=== PATIENT | male | born 1955 | race African-American/Black ===

== ENCOUNTER 2018-05-04 12:40 | Emergency (ER) | payer MEDICARE, MEDICAID ==
--- NOTE | 2018-05-04 14:16 | ED ---
Abdominal Pain/Male - HPI Summary HPI Summary: Pt is a 62 y/o male who presents to the ED c/o lower abdominal pain. He states hes had the pain for 6 days, and describes it as worsening at 6/10 in severity. Eating makes the pain worse. Pt denies any N/V/D, CP, SOB, or fever. He notes hes been having more BM over the past few days. Today he became dizzy which prompted him to come to the ED. PMHx DM and HTN. PSHx umbilical hernia repair. - History of Current Complaint Chief Complaint: EDAbdPain Stated Complaint: DIZZINESS/BP SAYS LOW/ABD PAIN Time Seen by Provider: 05/04/18 14:01 Hx Obtained From: Patient Onset/Duration: Gradual Onset, Lasting Days - 6, Worse Since Timing: Constant Severity Currently: Moderate Pain Intensity: 6 Pain Scale Used: 0-10 Numeric Location: Discrete At: RLQ, Discrete At: LLQ Radiates: No Aggravating Factor(s): Food Alleviating Factor(s): Nothing Associated Signs And Symptoms: Positive: Dizzy, Other - Increased BM. Negative : Fever, Chest Pain, Nausea, Vomiting, Diarrhea - Allergies/Home Medications Allergies/Adverse Reactions: Allergies Allergy/AdvReac Type Severity Reaction Status Date / Time No Known Allergies Allergy Verified 05/04/18 12:43 Home Medications: Home Medications Olmesartan/Amlodipin/Hcthiazid [Olmesartan Medoxomil/Amlo 40-10-25 mg] 1 tab PO DAILY 05/04/18 [History Confirmed 05/04/18] PMH/Surg Hx/FS Hx/Imm Hx Endocrine/Hematology History: Reports: Hx Diabetes Cardiovascular History: Reports: Hx Hypertension Respiratory History: History: Sensory History: Psychiatric History: - Surgical History Surgery Procedure, Year, and Place: Umbilical hernia repair Infectious Disease History: No Infectious Disease History: Denies: Traveled Outside the [place] in Last 30 Days - Family History Known Family History: Negative: Cardiac Disease - Social History Alcohol Use: Occasionally Hx Substance Use: No Substance Use Type: Reports: None Hx Tobacco Use: No Smoking Status (MU): Never Smoked Tobacco Review of Systems Negative: Fever Negative: Chest Pain Negative: Shortness Of Breath Positive: Abdominal Pain, Other - Increased BM. Negative: Vomiting, Diarrhea, Nausea Neurological: Other - Dizziness All Other Systems Reviewed And Are Negative: Yes Physical Exam - Summary Physical Exam Summary: Appearance: Well appearing, no pain distress Skin: warm, dry, reflects adequate perfusion Head/face: normal Eyes: EOMI, ERLIN ENT: normal Neck: supple, non-tender Respiratory: CTA, breath sounds present Cardiovascular: RRR, pulses symmetrical, no LE edema Abdomen: RLQ and LLQ tenderness, soft Bowel: present Musculoskeletal: normal, strength/ROM intact Neuro: normal, sensory motor intact, A&Ox3 Triage Information Reviewed: Yes Vital Signs On Initial Exam: Initial Vitals Temp Pulse Resp BP Pulse Ox 96.5 F 110 18 122/74 99 05/04/18 12:44 05/04/18 12:44 05/04/18 12:44 05/04/18 12:44 05/04/18 12:44 Vital Signs Reviewed: Yes Diagnostics - Vital Signs Vital Signs Temp Pulse Resp BP Pulse Ox 05/04/18 12:44 96.5 F 110 18 122/74 99 - Laboratory Result Diagrams: 05/04/18 14:23 05/04/18 14:23 Lab Statement: Any lab studies that have been ordered have been reviewed, and results considered in the medical decision making process. - CT CT A/P CT Interpretation: Positive (See Comments) - 1. Diverticulosis without evidence of acute inflammatory change associated with diverticulitis. 2. In the dependent right lower lobe there is pleural-based groundglass density that most likely is atelectasis /hypoventilatory change. Please correlate to any signs or symptoms of pneumonia. 3. Additional chronic and degenerative changes are likely to be directly related to the patient's current clinical presentation. ED physician reviewed radiology report. CT Interpretation Completed By: Radiologist - EKG 14:30 Cardiac Rate: NL - 88 bpm EKG Rhythm: Sinus Rhythm EKG Interpretation: No acute changes Abdominal Pain Fem Course/Dx - Course Course Of Treatment: Pt is a 62 y/o male who presents to the ED c/o lower abdominal pain. He states hes had the pain for 6 days, and describes it as worsening at 6/10 in severity. Eating makes the pain worse. Pt denies any N/V/D , CP, SOB, or fever. He notes hes been having more BM over the past few days. Today he became dizzy which prompted him to come to the ED. A physical exam revealed RLQ and LLQ tenderness, and no LE edema. A CT A/P revealed 1. Diverticulosis without evidence of acute inflammatory change associated with diverticulitis. 2. In the dependent right lower lobe there is pleural-based groundglass density that most likely is atelectasis /hypoventilatory change. Please correlate to any signs or symptoms of pneumonia. 3. Additional chronic and degenerative changes are likely to be directly related to the patient's current clinical presentation. An EKG revealed normal rate of 88 bpm. Final dx is non-specific abdominal pain. Pt is discharged and is agreeable with this plan. - Diagnoses Differential Diagnosis/HQI/PQRI: Appendicitis, Diverticulitis, Pancreatitis, Ureteral Stone Provider Diagnoses: Nonspecific abdominal pain Discharge - Sign-Out/Discharge Documenting (check all that apply): Patient Departure - Discharge - Discharge Plan Condition: Stable Disposition: HOME Prescriptions: Pantoprazole TAB (NF) [Protonix TAB (NF)] 40 mg PO DAILY #30 tab Patient Education Materials: Abdominal Pain (ED) Referrals: Shellie Gutierrez MD [Primary Care Provider] - 3 Days Additional Instructions: RETURN TO THE ED WITH NEW OR WORSENING SYMPTOMS. - Billing Disposition and Condition Condition: STABLE Disposition: Home - Attestation Statements Document Initiated by Scribe: Yes Documenting Scribe: Tish Grimes Provider For Whom Jad is Documenting (Include Credential): Beto Chong MD Scribe Attestation: Tish Shaffer scribed for Beto Chong MD on 05/04/18 at 1824. Scribe Documentation Reviewed: Yes Provider Attestation: The documentation as recorded by the Tish burton accurately reflects the service I personally performed and the decisions made by Beto fontenot MD
[2018-05-04] MEDS ORDERED: NS 0.9% 1000 ML* 1,000 ML IV ONE (14:19)
[2018-05-04 14:41] LABS: ABS Basophils 0.1 10^3/ul (0-0.2); ABS Eosinophils 0.1 10^3/ul (0-0.6); ABS Lymphocytes 2.1 10^3/ul (1.0-4.8); ABS Monocytes 0.5 10^3/ul (0-0.8); ABS Neutrophils 5.3 10^3/ul (1.5-7.7); ABS Nucleated RBC 0 10^3/ul; Hematocrit 42 % (42-52); Hemoglobin 14.1 g/dl (14.0-18.0); Lymphocyte % 25.4 % (25-47); Mean Corpuscular HGB Conc 34 g/dl (31-36); Mean Corpuscular Hemoglobin 28 pg (27-31); Mean Corpuscular Volume 83 fL (80-94); Mean Platelet Volume 8.7 um3 (7.4-10.4); Nucleated Red Blood Cells % 0.3; Platelet Count 239 10^3/ul (150-450); Red Blood Count 5.01 10^6/ul (4.00-5.40); Red Cell Distribution Width 14 % (10.5-15); White Blood Count 8.1 10^3/ul (3.5-10.8)
[2018-05-04 14:46] LABS: INR 1.05 (0.77-1.02)
[2018-05-04 15:10] LABS: EGFR Non-African American 53.7 (>60)
[2018-05-04] MEDS ORDERED: Iodixanol* (CONTRAST) 320 MG/ML 100 ML SDV IV ONE (15:46)
[2018-05-04 16:21] LABS: Urine Appearance Clear; Urine Color Yellow; Urine Specific Gravity 1.005 (1.010-1.030)
[2018-05-04 16:22] LABS: Urine Blood NEG (Negative); Urine Ketones NEG (Negative); Urine Protein NEG (Negative); Urine Urobilinogen NEG (Negative)
--- NOTE | 2018-05-04 17:55 | RAD ---
CLINICAL HISTORY: Abdominal pain, dizziness and low blood pressure COMPARISON: None TECHNIQUE: Contrast enhanced CT examination of the abdomen and pelvis from the lung bases through the initial tuberosities. The patient received 138 mL Visipaque 320 intravenously prior to imaging.The patient received oral contrast as well prior to imaging. FINDINGS: VISUALIZED LUNG BASES: There are pleural base hypoventilatory changes at the dependent right lower lobe. Otherwise the visualized lung bases are grossly clear. There is no pleural effusion. ABDOMEN AND PELVIS: The liver, spleen, pancreas and adrenal glands are grossly normal in appearance. The gallbladder is normal. The kidneys are normal in appearance without focal mass, calcification or signs of hydronephrosis. The oral contrast has progressed as far as the sigmoid colon. The small and large bowel are not distended. The patient's normal appendix is identified in the right lower quadrant with contrast and gas in the lumen measuring just under 5 mm in diameter. There are scattered distal colonic and rectosigmoid diverticula but no wall thickening or definite pericolonic inflammatory change to indicate acute diverticulitis. There is no gross retroperitoneal or mesenteric lymphadenopathy. The pelvic viscera is normal in appearance. The abdominal aorta and iliac arteries are normal in course and diameter. Degenerative changes include multilevel loss of intervertebral disc height involving the lower thoracic and lumbar spine.There are no sinister bone lesions. IMPRESSION: 1. Diverticulosis without evidence of acute inflammatory change associated with diverticulitis. 2. In the dependent right lower lobe there is pleural-based groundglass density that most likely is atelectasis /hypoventilatory change. Please correlate to any signs or symptoms of pneumonia. 3. Additional chronic and degenerative changes are likely to be directly related to the patient's current clinical presentation.
[2018-05-04] MEDS ORDERED: Pantoprazole TAB (NF) 40 MG TAB PO ONE (18:23)
[2018-05-04 18:35] VITALS: BP 117/75
[2018-05-04 22:43] LABS: Urine Red Blood Cell Trace(0-2/hpf) (Absent); Urine White Blood Cell Trace(0-5/hpf) (Absent)
== END 2018-05-04 18:34 | disposition home or self-care (01) ==
LOC: ED 12:40
DX: R10.31 Right lower quadrant pain (principal); R10.32 Left lower quadrant pain; K57.30 Diverticulosis of large intestine without perforation or abscess without bleeding; J98.4 Other disorders of lung; E11.9 Type 2 diabetes mellitus without complications; I10 Essential (primary) hypertension
CPT/HCPCS: 36415; 74177; 80053; 81003; 81015; 83605; 83690; 84484; 85025; 85610; 85730; 87086; 93005; 99282; A9270-GY; Q9967

== ENCOUNTER 2019-04-29 00:05 | Emergency (ER) | payer MEDICARE, MEDICAID ==
--- NOTE | 2019-04-29 00:41 | ED ---
Skin Complaint - HPI Summary HPI Summary: The pt is a 63 yr [facility] and upper and lower extremities beginning 2 weeks [employer]. He notes that the rashes have been spreading over the last 2 weeks and have now spread to his hands. He is active and runs, walks, and lifts weights every day. He notes that the rashes are not pruritic. He has Hx of DM and HTN. He rates his current pain severity a 0/10. No aggravating or alleviating factors noted. He also denies any fever. Allergies noted. Medications reviewed. - History of Current Complaint Chief Complaint: EDRashSkinAbscess Time Seen by Provider: 04/29/19 00:27 Stated Complaint: RASHES PER PT Hx Obtained From: Patient Onset/Duration: Started Weeks Ago, Still Present Skin Exposure Onset/Duration: Weeks Ago Timing: Constant, Lasting Weeks Onset Severity: Mild Current Severity: None Pain Intensity: 0 Pain Scale Used: 0-10 Numeric Skin Location: Arm, Hand, Leg Aggravating Symptom(s): Nothing Alleviating Symptom(s): Nothing Associated Signs & Symptoms: Negative - fever, Rash - Allergy/Home Medications Allergies/Adverse Reactions: Allergies Allergy/AdvReac Type Severity Reaction Status Date / Time No Known Allergies Allergy Verified 05/04/18 12:43 Home Medications: Home Medications Cholecalciferol (Vitamin D3) [Vitamin D3] 1 cap PO DAILY 04/29/19 [History Confirmed 04/29/19] PMH/Surg Hx/FS Hx/Imm Hx Endocrine/Hematology History: Reports: Hx Diabetes Cardiovascular History: Reports: Hx Hypertension Respiratory History: History: Sensory History: Psychiatric History: - Surgical History Surgery Procedure, Year, and Place: Umbilical hernia repair Infectious Disease History: No Infectious Disease History: Denies: Traveled Outside the [place] in Last 30 Days - Family History Known Family History: Negative: Cardiac Disease - Social History Alcohol Use: Occasionally Hx Substance Use: No Substance Use Type: Reports: None Hx Tobacco Use: No Smoking Status (MU): Never Smoked Tobacco Review of Systems Negative: Fever Positive: Rash All Other Systems Reviewed And Are Negative: Yes Physical Exam - Summary Physical Exam Summary: Constitutional: Well-developed, Well-nourished, Alert. (-) Distressed Skin: Warm, Dry, multiple areas of raised, dry rash on the bilateral forearms and legs, no areas of erythema, tenderness, or warmth. HENT: Normocephalic; Atraumatic Eyes: Conjunctiva normal Neck: Musculoskeletal ROM normal neck. (-) JVD, (-) Stridor, (-) Tracheal deviation Cardio: Rhythm regular, rate normal, Heart sounds normal; Intact distal pulses; The pedal pulses are 2+ and symmetric. Radial pulses are 2+ and symmetric. (-) Murmur Pulmonary/Chest wall: Effort normal. (-) Respiratory distress, (-) Wheezes, (-) Rales Abd: Soft, (-) tenderness, (-) Distension, (-) Guarding, (-) Rebound Musculoskeletal: (-) Edema Lymph: (-) Cervical adenopathy Neuro: Alert, Oriented x3 Psych: Mood and affect Normal Triage Information Reviewed: Yes Vital Signs On Initial Exam: Initial Vitals Temp Pulse Resp BP Pulse Ox 96.4 F 77 18 136/85 98 04/29/19 00:06 04/29/19 00:06 04/29/19 00:06 04/29/19 00:06 04/29/19 00:06 Vital Signs Reviewed: Yes Diagnostics - Vital Signs Vital Signs Temp Pulse Resp BP Pulse Ox 04/29/19 00:06 96.4 F 77 18 136/85 98 - Laboratory Lab Statement: Any lab studies that have been ordered have been reviewed, and results considered in the medical decision making process. Course/Dx - Course Course Of Treatment: Patient is here with symptoms consistent with eczema. Patient's overall well-appearing with no red flag symptoms of rashes. Patient started on triamcinolone ointment. Patient was educated on eczema management. - Diagnoses Provider Diagnoses: Eczema Discharge ED - Sign-Out/Discharge Documenting (check all that apply): Patient Departure - discharge Patient Received Moderate/Deep Sedation with Procedure: No - Discharge Plan Condition: Stable Disposition: HOME Prescriptions: Triamcinolone 0.5% OINT * 1 applic TOPICAL QAM 7 Days #1 tube Patient Education Materials: Eczema (ED) Referrals: Shellie Gutierrez MD [Primary Care Provider] - 3 Days Additional Instructions: Please limit your showers. Please apply steroids first and then the Vaseline. Please stop all lotion use on your skin. PLEASE RETURN TO EMERGENCY DEPARTMENT FOR ANY NEW OR WORSENING SYMPTOMS. Please follow up with your primary care physician. Please make all follow-ups in 1-3 days unless I advise you otherwise. - Billing Disposition and Condition Condition: STABLE Disposition: Home - Attestation Statements Document Initiated by Jad: Yes Documenting Scribe: Adam Emerson Provider For Whom Jad is Documenting (Include Credential): Panfilo Romero MD Scribe Attestation: I, Adam Emerson, scribed for Panfilo Romero MD on 04/29/19 at 0111. Scribe Documentation Reviewed: Yes Provider Attestation: The documentation as recorded by the Adam burton accurately reflects the service I personally performed and the decisions made by me, Panflio Romero MD Status of Scribe Document: Viewed
[2019-04-29 00:58] VITALS: BP 110/81
== END 2019-04-29 00:57 | disposition home or self-care (01) ==
LOC: ED 00:05
DX: L30.9 Dermatitis, unspecified (principal); E11.9 Type 2 diabetes mellitus without complications; I10 Essential (primary) hypertension
CPT/HCPCS: 99281